=== PATIENT | male | born 1950 | race African-American/Black ===

== ENCOUNTER 2018-11-20 08:23 | Emergency (ER) | payer MEDICARE, OTHER ==
[~2018-11-20] VITALS: Ht 170.2 cm; Wt 68.0 kg
[2018-11-20 08:25] VITALS: BP 140/63
--- NOTE | 2018-11-20 08:27 | NUR ---
PATIENT WHEELCHAIR ASSISTED TO BED 6 AT THIS TIME.
--- NOTE | 2018-11-20 08:54 | NUR ---
PT BIB BY CAREGIVER PT IS NON VERBAL C/O CLOGGED G TUBE THIS MORNING. PT DENIES ANY ABD PAIN N/V/D/, RT SIDE ARM WEAK NOTED S/P CVA 2 YEARS AGO.SKIN IS INTACT, PINK/WARM/DRY; AAOX4; PT UNABLE TO WALK-W/C, LUNGS CLEAR BL, BREATHING UNLABORED; HR EVEN AND REGULAR, BL PERIPHERAL PULSES PRESENT; BS ACTIVE X4, NO TENDERNESS TO PALPATION PT DENIES ANY FEVER, CP, SOB, OR COUGH AT THIS TIME; PT STATES 0/10 PAIN AT THIS TIME; VSS; PATIENT POSITIONED FOR COMFORT; HOB ELEVATED; BEDRAILS UP X2; BED DOWN. WARM BLANK GIVEN.
--- NOTE | 2018-11-20 09:10 | NUR ---
REPORT RECV'D FROM ROSELINE SHELBY, DEWEY OF CARE AT THIS TIME.
--- NOTE | 2018-11-20 09:32 | NUR ---
DR. HOOPER AT BEDSIDE EVALUATING PT
--- NOTE | 2018-11-20 09:50 | NUR ---
G-TUBE FLUSHED WITH 30 ML WATER, NO RESISTANCE FELT. DR. HOOPER MADE AWARE.
[2018-11-20 09:53] VITALS: BP 140/60
--- NOTE | 2018-11-20 09:53 | NUR ---
Patient discharged with v/s stable. Written and verbal after care instructions given and explained. Patient verbalized understanding. PAIENT WHEELCHAIRED OUT. All questions addressed prior to discharge. Advised to follow up with PMD.
== END 2018-11-20 09:53 | disposition home or self-care (01) ==
LOC: MED 08:23
DX: I63.9 Cerebral infarction, unspecified (principal); R47.02 Dysphasia; K94.23 Gastrostomy malfunction; E11.9 Type 2 diabetes mellitus without complications; I10 Essential (primary) hypertension; Z86.73 Personal history of transient ischemic attack (TIA), and cerebral infarction without residual deficits
CPT/HCPCS: 99283